=== PATIENT | female | born 1975 | race Caucasian/White ===

== ENCOUNTER 2020-06-04 14:45 | Outpatient (CLI) | payer BC, SELFPAY ==
--- NOTE | ~2020-06-04 | MM_ITS ---
EXAMINATION: MM screening saravanan BI w almas HISTORY: Screening TECHNIQUE: Craniocaudal and mediolateral oblique 3-D tomosynthesis images were obtained and synthetic 2-D images were generated. CAD analysis was submitted and interpreted. COMPARISON: Comparison to multiple prior studies sequentially, with oldest reviewed study dated 10/15. BREAST PARENCHYMAL COMPOSITION: The breasts are heterogeneously dense, which may obscure small masses . FINDINGS: There are developing clusters of calcifications in both breasts. There are no suspicious ma sses or architectural distortion. IMPRESSION: 1. Developing clusters of bilateral breast calcifications. 2. Magnification views are recommended. BI-RADS Category 0: Incomplete: Needs additional imaging evaluation. Reviewed, dictated and finalized at location A.
== END 2020-06-04 14:46 | disposition home or self-care (01) ==
PROVIDERS: PCP Obstetrics & Gynecology; Visit Provider Obstetrics & Gynecology
DX: Z12.31 Encounter for screening mammogram for malignant neoplasm of breast (principal); R92.8 Other abnormal and inconclusive findings on diagnostic imaging of breast
CPT/HCPCS: 77063; 77067

== ENCOUNTER 2020-06-30 11:11 | Outpatient (CLI) | payer BC, SELFPAY ==
--- NOTE | ~2020-06-30 | MM_ITS ---
EXAMINATION: MM diagnostic mammo BI HISTORY: Indeterminate breast calcifications on screening mammogram TECHNIQUE: Magnification views of the breasts were performed. CAD analysis was submitted and interpre roberto. COMPARISON: 06/04/2020, 04/25/2019,01/05/2016 FINDINGS: Right breast: There are punctate grouped calcifications in the middle third of the slightly outer, sl ightly upper central right breast at the 9:00 location 7 cm from the nipple which appear to be round in morphology. No associated mass is identified. Left breast: There is benign calcification in the middle third of the upper outer quadrant of the malcom ast at the 2:00 location 9 cm from the nipple. There are grouped calcifications in the middle third o f the upper, slightly inner breast 8 cm from the nipple which appear to be coarse heterogeneous in mo rphology. IMPRESSION: 1. Suspicious left breast calcifications in the upper inner breast. 2. Stereotactic biopsy is recommended. 3. Routine screening mammography is recommended on the right. BI-RADS category 4, suspicious findings. Reviewed, dictated and finalized at location A.
== END 2020-06-30 11:12 | disposition home or self-care (01) ==
LOC: ANHIMG 11:17
PROVIDERS: Visit Provider Obstetrics & Gynecology
DX: R92.8 Other abnormal and inconclusive findings on diagnostic imaging of breast (principal)
CPT/HCPCS: 77066

== ENCOUNTER 2025-02-20 14:05 | Outpatient (CLI) | payer MEDICAID, SELFPAY ==
--- NOTE | ~2025-02-20 | MM_ITS ---
EXAMINATION: MM screening saravanan BI w almas HISTORY: Screening TECHNIQUE: Craniocaudal and mediolateral oblique 3-D tomosynthesis images were obtained and synthetic 2-D images were generated. CAD analysis was submitted and interpreted. COMPARISON: Comparison to multiple prior studies sequentially, with oldest reviewed study dated 01/2016. BREAST PARENCHYMAL COMPOSITION: Not dense: There are scattered areas of fibroglandular density. FINDINGS: There is no evidence of suspicious mass, calcification, or architectural distortion to sugg est malignancy in either breast. There has been no suspicious interval change. IMPRESSION: 1. No mammographic evidence of malignancy. 2. Recommend routine screening mammography in one year. BI-RADS Category 1: Negative Reviewed, dictated and finalized at location B.
--- OUTSIDE RECORDS SUMMARY | 2025-02-20 14:19 | XMS_ITS | Clinical Summary ---
Author Organization [address] Address [address] [place] [id number] Care Team Providers Care Endoscopy Rn Name Role Phone Denae Lawrence MD PhD Unavaila ble Tatiana Khan MD Unavailable [phone] Adonay Best MD PhD Unavailable [phone] Karan Clayton MD Primary Care Provider [phone] Hallie Cruz PT Unavailable Unavailable Andrés Duong MD Unavailable [phone] Allergies Active Allergy Reactions Criticality Noted Date Comments Latex Rash Medium 01/15/2022 Medications valACYclovir (VALTREX) 500 mg tabletIndicatio ns:genital herpes simplex Take 1 tablet (500 mg total) by mouth daily after lunch 6 01/20/2019 Active wheat dextrin 3 gram/3.8 gram powderIndicatio ns:constipation Take by mouth every morning Active uucwbthc-dsd-rp [id number]-DY-xttbzd 8 mg iron-400 mcg-300 mcg tabletIndicatio ns:Vitamin Deficiency Prevention Take 1 tablet by mouth every morning Active UNABLE TO FIND - ENTER DRUG NAME IN NOTES TO PHARMACY Med Name: [facility] Restore Take 1 tab po once daily Active levothyroxine (SYNTHROID) 137 mcg tablet Take 1 tablet (137 mcg total) by mouth daily 09/19/2023 Active ibuprofen 200 mg tab/cap Take 4 tablet/capsu le (800 mg total) by mouth nightly as needed Active amLODIPine (NORVASC) 5 mg tablet Take 1 tablet (5 mg total) by mouth daily 90 tablet 02/14/2024 Active Active Problems Problem Noted Date Diagnosed Date Essential hypertension 01/18/2023 Assessment & Plan (02/14/2024 9:32 AM CDT): BP Readings from Last 3 Encounters: 02/14/24 138/92 01/16/24 (!) 170/112 12/01/23 141/90 Vitals BP 138/92 (BP Location: Left arm, Patient Position: Sitting) Pulse 90 Resp 16 Ht 172.7 cm (5' 7.99 ) Wt 105.2 kg (232 lb) LMP (LMP Unknown) SpO2 96% BMI 35.28 kg/m Lab Results Component Value Date POTASSIUM 3.5 11/30/2023 Not at goal at this time Has been checking BP Start norvasc 5 mg now Assessment & Plan (01/16/2024 11:06 AM CDT): BP Readings from Last 3 Encounters: 01/16/24 (!) 170/112 12/01/23 141/90 11/09/23 138/84 Vitals BP (!) 170/112 (BP Location: Left arm, Patient Position: Sitting) Pulse 97 Temp 36.8 C (98.2 F) (Temporal) Resp 16 Ht 172.7 cm (5' 7.99 ) Wt 106.5 kg (234 lb 12.8 oz) LMP (LMP Unknown) SpO2 97% BMI 35.71 kg/m Lab Results Component Value Date POTASSIUM 3.5 11/30/2023 Significantly elevated at this time Start norvasc 5 mg every day Rtc in about 4-8 weeks Assessment & Plan (11/09/2023 1:09 PM BORING MACHINE SET UP OPERATOR JIG): BP Readings from Last 3 Encounters: 11/09/23 138/84 07/18/23 138/82 06/28/23 140/86 Vitals BP 138/84 (BP Location: Right arm, Patient Position: Sitting) Pulse 91 Temp 37.1 C (98.8 F) Resp 16 Ht 172.7 cm (5' 8 ) Wt 106.1 kg (234 lb) LMP (LMP Unknown) SpO2 99% BMI 35.58 kg/m Lab Results Component Value Date POTASSIUM 4.3 01/27/2022 Elevated but still at goal of <140 Assessment & Plan (07/18/2023 11:05 AM CDT): BP Readings from Last 3 Encounters: 06/28/23 140/86 01/18/23 138/88 09/14/22 138/90 Vitals Ht 172.7 cm (5' 7.99 ) Wt 110 kg (242 lb 6.4 oz) LMP (LMP Unknown) BMI 36.87 kg/m Lab Results Component Value Date POTASSIUM 4.3 01/27/2022 Not at goal at this time Will defer starting medication for now Assessment & Plan (01/18/2023 10:32 AM CDT): BP Readings from Last 3 Encounters: 01/18/23 138/88 09/14/22 138/90 06/21/22 125/84 Vitals BP 138/88 (BP Location: Right arm, Patient Position: Sitting) Pulse 82 Resp 18 Ht 172.7 cm (5' 7.99 ) Wt 108.4 kg (239 lb) LMP (LMP Unknown) SpO2 97% BMI 36.35 kg/m Lab Results Component Value Date POTASSIUM 4.3 01/27/2022 At goal at this time but would consider starting bp medication as she has had elevated bps in other offices including her obgyn Physical exam, annual 09/14/2022 Assessment & Plan (01/16/2024 11:07 AM CDT): Discussed lifestyle modifications, diet and exercise. Routine blood work ordered/reviewed today. Yearly vision and dental examinations. Assessment & Plan (09/14/2022 10:39 AM BORING MACHINE SET UP OPERATOR JIG): Discussed lifestyle modifications, diet and exercise. Routine blood work ordered/reviewed today. Yearly vision and dental examinations. History of total thyroidectomy 03/15/2022 Postoperative hypothyroidism 03/15/2022 Assessment & Plan (02/14/2024 9:34 AM CDT): Lab Results Component Value Date TSH 0.31 11/30/2023 Now seeing endo - most recently euthyroid from care everywhere Continue synthroid 137 mcg every day Assessment & Plan (11/09/2023 1:04 PM BORING MACHINE SET UP OPERATOR JIG): Lab Results Component Value Date TSH 10.90 (H) 01/27/2022 Now seeing endo - most recently euthyroid from care everywhere Continue synthroid 137 mcg every day States that endo wanted to lower her dose from 150 to 137 But ent surgeon wanted to keep her on 150 mcg Assessment & Plan (01/18/2023 10:42 AM CDT): Lab Results Component Value Date TSH 10.90 (H) 01/27/2022 Now seeing endo - most recently euthyroid from care everywhere Continue synthroid 150 mcg every day States that endo wanted to lower her dose from 150 to 137 But ent surgeon wanted to keep her on 150 mcg Assessment & Plan (09/14/2022 10:38 AM BORING MACHINE SET UP OPERATOR JIG): Lab Results Component Value Date TSH 10.90 (H) 01/27/2022 Following with endo Assessment & Plan (06/21/2022 3:00 PM CDT): Follows with Dr. Lomax in [facility] Assessment & Plan (03/15/2022 12:45 PM CDT): Not currently at goal, last tsh was 10.9, will need repeat and dose adjustment Noted with elevated calcium a well. Pt has scheduled follow up with endocrine this month Class 2 obesity due to exces s calories without serious comorbidity with body mass index (BMI) of 35.0 to 35.9 in adult 03/15/2022 Assessment & Plan (02/14/2024 9:30 AM CDT): Wt Readings from Last 3 Encounters: 02/14/24 105.2 kg (232 lb) 01/16/24 106.5 kg (234 lb 12.8 oz) 11/30/23 108 kg (238 lb) BMI Readings from Last 3 Encounters: 02/14/24 35.28 kg/m 01/16/24 35.71 kg/m 11/30/23 36.19 kg/m Not at goal of bmi <30 Continue diet and exercise BMI Follow-up includes: nutrition counseling and exercise counseling. Assessment & Plan (01/16/2024 11:07 AM CDT): Wt Readings from Last 3 Encounters: 01/16/24 106.5 kg (234 lb 12.8 oz) 11/30/23 108 kg (238 lb) 11/09/23 106.1 kg (234 lb) BMI Readings from Last 3 Encounters: 01/16/24 35.71 kg/m 11/30/23 36.19 kg/m 11/09/23 35.58 kg/m Not at goal of bmi <30 Continue diet and exercise BMI Follow-up includes: nutrition counseling and exercise counseling. Assessment & Plan (11/09/2023 1:09 PM BORING MACHINE SET UP OPERATOR JIG): Wt Readings from Last 3 Encounters: 11/09/23 106.1 kg (234 lb) 07/18/23 110 kg (242 lb 6.4 oz) 06/28/23 108.9 kg (240 lb) BMI Readings from Last 3 Encounters: 11/09/23 35.58 kg/m 07/18/23 36.87 kg/m 06/28/23 36.50 kg/m Not at goal of bmi <30 Continue diet and exercise BMI Follow-up includes: nutrition counseling and exercise counseling. Assessment & Plan (07/18/2023 11:03 AM CDT): Wt Readings from Last 3 Encounters: 07/18/23 110 kg (242 lb 6.4 oz) 06/28/23 108.9 kg (240 lb) 01/18/23 108.4 kg (239 lb) BMI Readings from Last 3 Encounters: 07/18/23 36.87 kg/m 06/28/23 36.50 kg/m 01/18/23 36.35 kg/m Not at goal of bmi <30 Continue diet and exercise BMI Follow-up includes: nutrition counseling and exercise counseling. Start wegovy 0.25 mg qweek Rxed by ozempic Assessment & Plan (01/18/2023 10:32 AM CDT): Wt Readings from Last 3 Encounters: 01/18/23 108.4 kg (239 lb) 09/14/22 107 kg (236 lb) 06/21/22 104.8 kg (231 lb) BMI Readings from Last 3 Encounters: 01/18/23 36.35 kg/m 09/14/22 35.89 kg/m 06/21/22 35.13 kg/m Not at goal of bmi <30 Continue diet and exercise BMI Follow-up includes: nutrition counseling and exercise counseling. Assessment & Plan (09/14/2022 10:38 AM BORING MACHINE SET UP OPERATOR JIG): Wt Readings from Last 3 Encounters: 09/14/22 107 kg (236 lb) 06/21/22 104.8 kg (231 lb) 05/10/22 103.1 kg (227 lb 6.4 oz) BMI Readings from Last 3 Encounters: 09/14/22 35.89 kg/m 06/21/22 35.13 kg/m 05/10/22 34.58 kg/m Not at goal of bmi <30 Continue diet and exercise BMI Follow-up includes: nutrition counseling and exercise counseling. Assessment & Plan (06/21/2022 2:57 PM CDT): BMI Follow-up includes: nutrition counseling and exercise counseling. Assessment & Plan (05/10/2022 3:14 PM CDT): BMI Follow-up includes: nutrition counseling and exercise counseling. Assessment & Plan (03/15/2022 12:57 PM CDT): HPI: Condition is not at/near goal A&P: Discussed/ordered labs, encouraged healthy, low carbohydrate lifestyle and at least 150min/week of exercise Chronic bilateral low back pain with bilateral s ciatica 03/15/2022 Assessment & Plan (06/21/2022 2:58 PM CDT): Has not had improvement but starts PT tomorrow. Has had some improvement, staets that she is starting to be able to move more Assessment & Plan (05/10/2022 3:19 PM CDT): No improvement with conservative measures, worsening sx and sx of stenosis. 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 She had pathologic stage I (pT1b, pN1a, cM0, Age at diagnosis: <55 years) with 13/24 nodes positive. Post thyroidectomy she was not started on levothyroxine seen and instructed not to start until after radioactive iodine administration. TSH 02/10/2022 was 28.720. She was prescribed wanted mCi of I -131 and on 02/23/2022 received 93.6 mCi of I -131 via the oral route as per nuclear medicine protocol. Assessment & Plan (11/09/2023 1:05 PM BORING MACHINE SET UP OPERATOR JIG): Stable Following endo and ENT Hematoma of left breast 07/21/2020 Recurrent boils 07/21/2020 Other specified hypothyroidism 07/03/2019 Assessment & Plan (07/18/2023 11:05 AM CDT): Lab Results Component Value Date TSH 10.90 (H) 01/27/2022 Last tsh in chart from [facility] was 0.08 Follos with endo Continue levothyroxine 150 mcg Would recommend decreasing to 137 mcg but will defer to endo Assessment & Plan (07/03/2019 9:01 AM CDT): Pt states she had labs 2 wks ago at previous PCP, Condition is stable, encouraged healthy, low carbohydrate diet and at least 150min/week of exercise, continue on levothyroxine 75mcg daily No symptoms HSV-2 (herpes simplex virus 2) infection 019 Assessment & Plan (07/03/2019 9:15 AM CDT): Condition is stable, encouraged healthy, low carbohydrate diet and at least 150min/week of exercise, continue on valtrex 500mg daily Colon polyps 07/03/2019 Overview (07/03/2019): Last colonoscopy May 31, 2019 Repeat in 5 yrs. Assessment & Plan (07/03/2019 9:04 AM CDT): Had colonoscopy May 2019. Found polyps, none cancerous. Other microscopic hematuria 07/03/2019 Assessment & Plan (07/03/2019 9:26 AM CDT): Pt was found to have blood in urine 2 wks ago and was asked to have repeat in another month. Pt will have OIL HEATER OPERATOR do this. LLQ pain 07/03/2019 Assessment & Plan (07/03/2019 9:26 AM CDT): Has been having extensive workup at previous provider. She had an abnormal CT abd/pelvis that showed significant change in left ovary Pt sees DR. Andrés Gastelum at [facility] in [place]. Resolved Problems Problem Noted Date Diagnosed Date Resolved Date Elevated blood pressure read ing in office without diagnosis of hypertension 09/14/20222022 Body mass index (BMI) 35.0-35.9, adult 06/21/2022 06/21/2022 Thyroid cancer (CMS/HCC) 07/21/202006/2022 Cancer Staging:Clinical stage from 01/15/2022:Stage I(cT3a, cN1, cM0, Age at diagnosis: < 55 years) - Signed by Tatiana Khan MD on 02/10/2022 Assessment & Plan (03/15/2022 12:43 PM CDT): S/p thyroidectomy, following with ENT surgery - most recent TSH not at goal BMI 29.0-29.9,adult 07/03/2019 06/21/20 22 Assessment & Plan (09/27/2019 4:40 PM BORING MACHINE SET UP OPERATOR JIG): Healthy, low carbohydrate lifestyle and exercise for 150min/week recommended Assessment & Plan (07/03/2019 9:03 AM CDT): Healthy, low carbohydrate diet and exercise for 150min/week recommended Immunizations Immunization Administration Dates Next Due DTaP 5 Pertussis 04/02/2012 Influenza, Unspecified 11/09/2023(Deferr ed: Patient Refused),09/14/2022(Deferred: Patient Refused),04/09/2022(Deferred: Patient Refused),12/02/2021(Deferred: Patient Refused),07/04/2018(Deferred: Patient Refused) Surgical History Surgery Date Site/Laterality Comments ENDOMETRIAL ABLATION 10/03/2014 - 10/02/2015 PARTIAL HYSTERECTOMY 10/03/2016 - 10/02/2017 Overy removal 07/2019 COLONOSCOPY HYSTERECTOMY BREAST BIOPSY 07/21/2020 Left LEFT OOPHORECTOMY 10/03/2018 - 10/02/2019 Medical History Medical History Date Comments Allergic Sesonal Thyroid disease 2002 Hypo Nodule of left lobe of thyroid gland 2010 Nodules Hernia, hiatal 2012 Ovarian cyst 2018 Recurrent boils 1998 Infected cervical abrasion 2004 HPV in female Thyroid cancer (HCC) Diverticulosis Endometriosis Delayed emergence from general anesthesia Motion sickness Diverticulosis H/O breast biopsy Anemia 2012 Anxiety 2000 Menstrual problem 2002 Family History Medical History Relation Name Comments No Known Problems Brother 1 No Known Problems Brother 2 No Known Problems Brother 3 Asthma Brother 4 Jack Rashes / Skin problems Brother 4 Jack Cancer Father Bill Diabetes Father Bill Hypertension Father Bill Brain Aneurysm Maternal Grandfather Anemia Maternal Grandmother Katie Clotting disorder Maternal Grandmother Katie Hypertension Maternal Grandmother Katie Stroke Maternal Grandmother Katie Breast cancer Mother Anastasia Cancer Mother Anastasia Hypertension Mother Anastasia Hypertension Paternal Grandmother Anesthesia problems Neg Hx Relation Name Status Comments Brother 1 Alive Brother 2 Alive Brother 3 Alive Brother 4 Jack Alive Father Bill Alive Maternal Grandfather Maternal Grandmother Katie Mother Anastasia Alive Paternal Grandmother Sister Still Born Social History Tobacco Use Types Packs/Day Years Used Date Smoking Tobacco: Former Cigarettes 1 30 1 - 07/20/2017 Smokeless Tobacco: Never Tobacco Cessation:Counseling Given: Not Answered Comments:No vaping Alcohol Use Standard Drinks/Week Comments Not Currently 0 (1 standard drink = 0.6 oz pur e alcohol) AUDIT-C Answer Date Recorded Q1: How often do you have a drink containing alcohol? Never 11/09/2023 Q2: How many drinks containi ng alcohol do you have on a typical day when you are drinking? Patient does not drink Q3: How often do you have si x or more drinks on one occasion? Never 11/09/2023 PHQ-2 Answer Date Recorded PHQ-2 Total Score (If total score is 3 or more points, staff should administer the PHQ-9) 0 02/14/2024 Personal Safety Answer Date Recorded Have you ever been in or are you currently in a harmful physical or emotional relationship or is someone making you feel afraid or unsafe? Yes 11/30/2023 Comments No Sex and Gender Information Value Date Recorded Sex Assigned at Not on file Legal Sex Female 1:13 PM BORING MACHINE SET UP OPERATOR JIG Gender Identity Not on file Sexual Orientation Not on file Obstetrics History Last Filed Vital Signs Vital Sign Reading Time Taken Comments Blood Pressure 138/92 02/14/2024 9:16 AM CDT Pulse 90 02/14/2024 9:16 AM CDT Temperature 36.8 C (98.2 F) 01/16/2024 10:46 AM CDT Respiratory Rate 16 02/14/2024 9:16 AM CDT Oxygen Saturation 96% 02/14/2024 9:16 AM CDT Inhaled Oxygen Concentration - - Weight 105.2 kg (232 lb) 02/14/2024 9:16 AM CDT Height 172.7 cm (5' 7.99 ) 02/14/2024 9:16 AM CD T Body Mass Index 35.28 02/14/2024 9:16 AM CDT Plan of Treatment Health Maintenance Due Date Last Done Comments Hepatitis C Screening 1973 Hepatitis B Screening 1991 Breast Cancer Screening-Mammogram 04/25/2020 04/25/2019 DTaP/Tdap/Td Vaccine (2 - Tdap) 04/02/2022 04/02/2012 Lung Cancer Screening 2023 Zoster Vaccine (1 of 2) 2023 Regular Well Visit/Exam 18-64 01/15/2025 01/16/2024, 09/14/2022 Depression Screening 02/13/2025 02/14/2024, 01/16/2024, 11/09/2023, Additional history exists Influenza Vaccine (Season Ended) 2025 Colon Cancer Screening-Colonoscopy 05/11/2029 05/11/2019 Cervical Cancer Screening Discontinued 04/11/2019 Pneumococcal vaccine <65 Aged Out No longer eligible based on patient's age to complete this topic Procedures Procedure Name Priority Date/Time Associated Diagnosis Comments HM MAMMOGRAPHY Routine 04/25/2019 PAP SMEAR WITH HPV Routine 04/11/2019 from Last 3 Months or Most Recently Relevant to Health Maintenance Results * MAMMOGRAPHY (04/25/2019) Mammogram Normal Historical Provider HEALTH MAINTENANCE Final Result * PAP SMEAR WITH HPV (04/11/2019) Pap smear Normal Comment:04/11/19 Historical Provider MD HEALTH MAINTENANCE Final Result from Last 3 Months or Most Recently Relevant to Health Maintenance Insurance [address] [place] [id number] [place] [address] [employer] [place] [facility] Advance Directives For more information, please contact: [phone] Documents on File Type Date Recorded Patient Snuff Grinder Expl anation ADVANCE DIRECTIVE 01/15/2022 8:41 AM Power of Plate Embosser-Medical * Full Code (Latest Code Status on File) Date Activated Date Inactivated Comments 01/15/2022 6:12 PM 01/17/2022 5:41 PM * Full Code Date Activated Date Inactivated Comments 07/21/2020 10:47 PM 07/22/2020 11:02 PM Care Teams Endoscopy Rn Relationship Specialty Start Date End Date Karan Clayton MD PCP - General Family Medicine 03/15/22 Denae Lawrence MD PhD Surgeon Surgical Oncology 07/22/20 Tatiana Khan MD Radiation Oncologist Radiation Oncology 02/10/22 Adonay Best MD PhD Surgeon Otolaryngology 02/10/22 Hallie Cruz PT Physical Therapist Physical Therapy 07/05/22 Andrés Duong MD [id number] [facility] [address] [place] [address] Referring Physician Obstetrics and Gynecology 01/18/23
--- OUTSIDE RECORDS SUMMARY | 2025-02-20 14:19 | XMS_ITS | Referral Summary ---
Author Organization [address] Address [address] [place] [id number] Care Team Providers Care Radiography Technician Name Role Phone Denae Lawrence MD PhD Unavaila ble Tatiana Khan MD Unavailable [phone] Adonay Best MD PhD Unavailable [phone] Karan Clayton MD Primary Care Provider [phone] Hallie Cruz PT Unavailable Unavailable Andrés Duong MD Unavailable [phone] Allergies Active Allergy Reactions Criticality Noted Date Comments Latex Rash Medium 01/15/2022 Medications valACYclovir (VALTREX) 500 mg tabletIndicatio ns:genital herpes simplex Take 1 tablet (500 mg total) by mouth daily after lunch 6 01/20/2019 Active wheat dextrin 3 gram/3.8 gram powderIndicatio ns:constipation Take by mouth every morning Active pzzyiwss-hvu-fg cq-[id number] 8 mg iron-400 mcg-300 mcg tabletIndicatio ns:Vitamin [...] weeks Assessment & Plan (11/09/2023 1:09 PM PROPERTY CLERK): BP Readings from Last 3 Encounters: 11/09/23 [...] examinations. Assessment & Plan (09/14/2022 10:39 AM PROPERTY CLERK): Discussed lifestyle modifications, diet and exercise. Routine blood work ordered/reviewed today. Yearly vision and dental examinations. 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 Lomax in [facility] Assessment & Plan (03/15/2022 12:45 PM CDT): [...] counseling. Assessment & Plan (11/09/2023 1:09 PM PROPERTY CLERK): Wt Readings from Last 3 Encounters: 11/09/23 [...] counseling. Assessment & Plan (09/14/2022 10:38 AM PROPERTY CLERK): Wt Readings from Last 3 Encounters: 09/14/22 [...] dissection (lymph node level 6) 01/15/2022 at [facility]. She had pathologic stage I (pT1b, [...] protocol. Assessment & Plan (11/09/2023 1:05 PM PROPERTY CLERK): Stable Following endo and ENT Hematoma of left breast 07/21/2020 Recurrent boils 07/21/2020 Other specified hypothyroidism 07/03/2019 Assessment & Plan (07/18/2023 11:05 AM CDT): Lab Results Component Value Date TSH 10.90 (H) 01/27/2022 Last tsh in chart from [facility] was 0.08 Follos with endo Continue levothyroxine [...] repeat in another month. Pt will have MACHINE STOPPAGE FREQUENCY CHECKER do this. LLQ pain 07/03/2019 Assessment & Plan (07/03/2019 9:26 AM CDT): Has been having extensive workup at previous provider. She had an abnormal CT abd/pelvis that showed significant change in left ovary Pt sees DR. Andrés Gastelum at [facility] in [place]. Resolved Problems Problem Noted Date Diagnosed Date [...] 22 Assessment & Plan (09/27/2019 4:40 PM PROPERTY CLERK): Healthy, low carbohydrate lifestyle and exercise for 150min/week recommended Assessment & Plan (07/03/2019 9:03 AM CDT): Healthy, low carbohydrate diet and exercise for 150min/week recommended Immunizations Immunization Administration Dates Next Due DTaP 5 Pertussis 04/02/2012 Influenza, Unspecified 11/09/2023(Deferr ed: Patient Refused),09/14/2022(Deferred: Patient Refused),04/09/2022(Deferred: Patient Refused),12/02/2021(Deferred: Patient Refused),07/04/2018(Deferred: Patient Refused) Social History Tobacco Use Types Packs/Day Years [...] on file Legal Sex Female 1:13 PM PROPERTY CLERK Gender Identity Not on file Sexual Orientation Not on file Last Filed Vital Signs Vital Sign Reading [...] 02/14/2024 9:16 AM CDT Plan of Treatment Not on file Procedures Procedure Name Priority Date/Time Associated Diagnosis Comments MAMMOGRAPHY Routine 04/25/2019 PAP SMEAR WITH HPV Routine 04/11/2019 from Last 3 Months or Most Recently Relevant to Health Maintenance Results * MAMMOGRAPHY (04/25/2019) Mammogram Normal Historical Provider HEALTH MAINTENANCE Final Result * PAP SMEAR WITH HPV (04/11/2019) Pap smear Normal Comment:04/11/19 Historical Provider HEALTH MAINTENANCE Final Result from Last 3 Months or Most Recently Relevant to Health Maintenance [place] [address] [facility] H[facility]/PPO Address: [address] [address] [place] [address] [facility] H[facility]/PPO Address: [address] [address] Advance Directives For more information, please contact: [phone] Documents on File Type Date Recorded Patient Furniture Crater Expl anation ADVANCE DIRECTIVE 01/15/2022 8:41 AM Power of Auricular Acupuncturist-Medical * Full Code (Latest Code Status on File) Date Activated Date Inactivated Comments 01/15/2022 6:12 PM 01/17/2022 5:41 PM * Full Code Date Activated Date Inactivated Comments 07/21/2020 10:47 PM 07/22/2020 11:02 PM Care Teams Radiography Technician Relationship Specialty Start Date End Date Karan Clayton MD PCP - General Family Medicine 03/15/22 Denae Lawrence MD PhD Surgeon Surgical Oncology 07/22/20 Tatiana Khan MD Radiation Oncologist Radiation Oncology 02/10/22 Adonay Best MD PhD Surgeon Otolaryngology 02/10/22 Hallie Cruz, PT Physical Therapist Physical Therapy 07/05/22 Andrés Duong MD [id number] [facility] [address] [address] Referring Physician Obstetrics and Gynecology 01/18/23
--- OUTSIDE RECORDS SUMMARY | 2025-02-20 14:19 | XMS_ITS | Clinical Summary ---
Author Organization [facility] Address [address] [place] [address] Care Team Providers Care Wellfield Technician Name Role Phone Unavailable Primary Care Provider Unavailabl e Source Comments [facility],non-owned Affiliates and Associated Physician Practices is amultiple site organization consisting of ambulatory clinics and hospital sitesin [place], [place], [place] and [place]. This disclosure is being madepursuant to the Care Everywhere program and may not contain all information available regarding this patient. Last updated 18.[facility] Allergies No known active allergies Medications * Be aware that medications may not be up to date on this document. Alwaysverify current medications with the patient. levothyroxine (SYNTHROID) 75 MCG tablet Take 75 mcg by mouth daily before breakfast Active methylPREDNISol one (MEDROL DOSEPAK) 4 MG tablet Take by mouth as directed 1 Each 7 Active Active Problems Problem Noted Date Diagnosed Date Hypothyroidism 09/19/2016 Social History Tobacco Use Types Packs/Day Years Used Date Smoking Tobacco: Every Day Comments Unknown Sex and Gender Information Value Date Recorded Sex Assigned at Not on file Legal Sex Female 11:12 AM MEN'S GARMENT FITTER Gender Identity Not on file Sexual Orientation Not on file Last Filed Vital Signs Vital Sign Reading Time Taken Comments Blood Pressure 128/88 01/24/2017 10:02 AM CDT Pulse 81 01/24/2017 10:02 AM CDT Temperature 36.8 C (98.3 F) 01/24/2017 10:02 AM CDT Respiratory Rate - - Oxygen Saturation 98% 09/19/2016 11:57 AM MEN'S GARMENT FITTER Inhaled Oxygen Concentration - - Weight 99.8 kg (220 lb) 01/24/2017 10:02 AM CDT Height 172.7 cm (5' 8 ) 01/24/2017 10:02 AM CDT Body Mass Index 33.45 01/24/2017 10:02 AM CDT Plan of Treatment Health Maintenance Due Date Last Done Comments COLOGUARD (AGES 45-75) - COL ON CA SCREENING 1973 COLON MONITORING 1973 COLONOSCOPY - COLON CA SCREENING 1973 CT COLONOGRAPHY - COLON CA SCREENING 1973 Colorectal Cancer Screening 1973 FIT - COLON CA SCREENING 1973 FLEX SIG - COLON CA SCREENING 1973 LIPID TESTING 1973 MAMMOGRAM 1973 HIV SCREENING 01/12/1988 HEPATITIS C SCREENING 01/07/1991 DTAP/TDAP/TD VACCINES (1 - Tdap) 01/12/1992 HEPATITIS B VACCINE (1 of 3 - 19+ 3-dose series) 01/12/1992 PNEUMOCOCCAL VACCINE 50+ (1 of 1 - PCV) 2023 ZOSTER VACCINE (1 of 2) 2023 COVID-19 VACCINE (1 - 2023-2 5 season) 2024 DEPRESSION SCREENING 10/03/2024 INFLUENZA VACCINE (Season Ended) 2025 HIB VACCINE Aged Out No longer eligi ble based on patient's age to complete this topic HPV VACCINE Aged Out No longer eligi ble based on patient's age to complete this topic MENINGOCOCCAL (Group B) VACC INE SHARED DECISION-MAKING Aged Out No longer eligibl e based on patient's age to complete this topic MENINGOCOCCAL GROUPS A/C/Y/W VACCINE Aged Out No longer eligible b ased on patient's age to complete this topic Insurance DON ISAAC
--- OUTSIDE RECORDS SUMMARY | 2025-02-20 14:19 | XMS_ITS ---
Author Organization [address] Address [address] [place] [id number] Care Team Providers Care Rotary Bar Operator Name Role Phone Denae Lawrence MD PhD Unavaila ble Tatiana Khan MD Unavailable [phone] Adonay Best MD PhD Unavailable [phone] Karan Clayton MD Primary Care Provider [phone] Hallie Cruz PT Unavailable Unavailable Andrés Duong MD Unavailable [phone] Active Problems Problem Noted Date Diagnosed Date [...] weeks Assessment & Plan (11/09/2023 1:09 PM STAVE JOINTER): BP Readings from Last 3 Encounters: 11/09/23 [...] examinations. Assessment & Plan (09/14/2022 10:39 AM STAVE JOINTER): Discussed lifestyle modifications, diet and exercise. Routine blood work ordered/reviewed today. Yearly vision and dental examinations. 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 Lomax in [facility] Assessment & Plan (03/15/2022 12:45 PM [...] counseling. Assessment & Plan (11/09/2023 1:09 PM STAVE JOINTER): Wt Readings from Last 3 Encounters: 11/09/23 106.1 kg (234 lb) 07/18/23 110 kg (242 lb 6.4 oz) 06/28/23 108.9 kg (240 lb) BMI Readings from Last 3 Encounters: 02/07/24 35.58 kg/m 07/18/23 36.87 kg/m 06/28/23 36.50 [...] counseling. Assessment & Plan (09/14/2022 10:38 AM STAVE JOINTER): Wt Readings from Last 3 Encounters: 09/14/22 [...] dissection (lymph node level 6) 01/15/2022 at [facility]. She had pathologic stage I (pT1b, [...] protocol. Assessment & Plan (11/09/2023 1:05 PM STAVE JOINTER): Stable Following endo and ENT Hematoma of left breast 07/21/2020 Recurrent boils 07/21/2020 Other specified hypothyroidism 07/03/2019 Assessment & Plan (07/18/2023 11:05 AM CDT): Lab Results Component Value Date TSH 10.90 (H) 01/27/2022 Last tsh in chart from [facility] was 0.08 Follos with endo Continue levothyroxine [...] repeat in another month. Pt will have ARTIFICIAL BREEDING DISTRIBUTOR do this. LLQ pain 07/03/2019 Assessment & Plan (07/03/2019 9:26 AM CDT): Has been having extensive workup at previous provider. She had an abnormal CT abd/pelvis that showed significant change in left ovary Pt sees DR. Andrés Gastelum at [facility] in [place]. Current Treatment and Therapy Plans No current plan information found. Past Treatment and Therapy Plans No past plan information found. Lifetime Dose Tracking * Chemical Lifetime Dose Automatic Entry Manual Entr y DLP 449 mGycm 449 mGycm 0 mGycm Resolved Problems Problem Noted Date Diagnosed Date [...] 22 Assessment & Plan (09/27/2019 4:40 PM STAVE JOINTER): Healthy, low carbohydrate lifestyle and exercise for 150min/week recommended Assessment & Plan (07/03/2019 9:03 AM CDT): Healthy, low carbohydrate diet and exercise for 150min/week recommended
== END 2025-02-20 14:06 | disposition home or self-care (01) ==
LOC: ANHIMG 14:09
PROVIDERS: PCP Family Medicine; Visit Provider Obstetrics & Gynecology
DX: Z12.31 Encounter for screening mammogram for malignant neoplasm of breast (principal)
CPT/HCPCS: 77063; 77067